=== PATIENT | male | born 1995 | race Two or more races ===

== ENCOUNTER 2019-01-25 08:15 | Outpatient (CLI) | payer OTHER ==
--- NOTE | 2019-01-25 15:41 | MRI Report ---
Reason: PAIN IN LEFT ANKLE AND JOINTS OF LEFT FOOT Procedure Date: 01/25/2019 Accession Number: [id number] / [id number] Procedure: MRI - Ankle LT W/O CPT Code: FULL RESULT: EXAM: LEFT ANKLE/HINDFOOT MRI WITHOUT CONTRAST EXAM DATE: 01/25/2019 09:05 AM. CLINICAL HISTORY: Left ankle pain. COMPARISON: None. TECHNIQUE: Multiplanar, multisequence T1-weighted and fluid-sensitive sequences of the ankle/hindfoot without contrast. Other: None. FINDINGS: Bones: No fractures. There is marrow edema within the distal fibular diaphysis that extends to the cranial margin of the imaged field of view, without a discrete fracture plane (series 7 image 27). There is also faint marrow edema within the lateral malleolus without a fracture. Marrow signal is otherwise normal. Articular Cartilage: Normal. No osteochondral lesion of the talar dome or tibial plafond. Ligaments: Mildly thickened and intermediate signal anterior talofibular ligament. The posterior talofibular and calcaneofibular ligaments are normal. Although no fluid since within the syndesmosis, the anterior inferior tibiofibular ligament is thickened and intermediate signal with irregularity of the fibers. The posterior inferior tibiofibular ligament is normal. The deep and superficial deltoid and spring ligaments are intact. Anterior Tendons: The tibialis anterior, extensor hallucis longus, and extensor digitorum longus tendons are unremarkable. Medial Tendons: The tibialis posterior, flexor digitorum longus, and flexor hallucis longus tendons are unremarkable. Lateral Tendons: The peroneus brevis and longus are unremarkable. Achilles Tendon: The Achilles tendon is unremarkable. Musculature: No edema or fatty atrophy. Other: No effusions. The contents of the sinus tarsi and tarsal tunnel are unremarkable. No plantar fasciitis. The subcutaneous tissues are unremarkable. IMPRESSION: 1. Sprain of the anterior talofibular ligament, with faint marrow edema at the tip of the lateral malleolus underlying the fibular attachment. 2. Partial tear of the anterior-inferior tibiofibular ligament. 3. Marrow edema within the distal fibular diaphysis at the cranial margin of the imaged field of view, without a fracture plane visualized. Correlate with radiographs of the tibia-fibula. [facility]IA
== END 2019-01-25 08:16 | disposition home or self-care (01) ==
LOC: DI 08:15
PROVIDERS: ATTEND Student in an Organized Health Care Education/Training Program
DX: S93.492A Sprain of other ligament of left ankle, initial encounter (principal); S93.432A Sprain of tibiofibular ligament of left ankle, initial encounter; R60.0 Localized edema

== ENCOUNTER 2020-11-13 01:32 | Emergency (ER) | payer OTHER ==
--- NOTE | 2020-11-13 02:16 | ED Physician Documentation ---
PD HPI DYSPNEA - Stated complaint Stated Complaint: SOA - Chief complaint Chief Complaint: Resp - History obtained from History obtained from: Patient - History of Present Illness Timing - onset: Enter time (20:00), Today Timing - onset during: Exertion Timing - details: Gradual onset Improved by: Rest Worsened by: Exertion Associated symptoms: Chest pain / discomfort. No: Fever, Cough Similar symptoms before: Has not had sx before Recently seen: Not recently seen - Additional information Additional information: c/o shortness of breath and "slight" (per patient) chest discomfort. Onset approximately 8 PM while working out at a gym tonight. Denies fever, denies cough. Had Moderna COVID vaccination 2 days ago. Denies myalgias Review of Systems Constitutional: denies: Fever, Chills, Myalgias, Fatigue, Sweats Cardiac: reports: Chest pain / pressure. denies: Palpitations, Pedal edema Respiratory: reports: Dyspnea. denies: Cough PD PAST MEDICAL HISTORY - Past Medical History Past Medical History: Yes GI: GERD - Past Surgical History Past Surgical History: No - Present Medications Home Medications: Ambulatory Orders Medication Instructions Recorded Confirmed Pantoprazole Sodium 40 mg PO DAILY 11/13/20 11/13/20 - Allergies Allergies/Adverse Reactions: Allergies Allergy/AdvReac Type Severity Reaction Status Date / Time No Known Drug Allergies Allergy Verified 11/13/20 01:39 - Social History Does the pt smoke?: No Smoking Status: Never smoker Does the pt drink ETOH?: Yes Does the pt have substance abuse?: No - Immunizations Immunizations are current?: Yes PD ED PE NORMAL - Vitals Vital signs reviewed: Yes - General General: Alert and oriented X 3, No acute distress, Well developed/nourished - Cardiac Cardiac: RRR, No murmur - Respiratory Respiratory: No respiratory distress, Clear bilaterally - Extremities Extremities: No edema Results - Vitals Vitals: Oxygen O2 Source Room air - Rads (name of study) chest xray Radiology: Prelim report reviewed, See rad report PD MEDICAL DECISION MAKING - ED course Complexity details: reviewed results, re-evaluated patient, considered differential, d/w patient ED course: c/o mild dyspnea, "slight" chest discomfort while working out at gym tonight. PERC negative and unremarkable CXR. Lungs CTA bilaterally on exam, 100% pulse ox on room air. Further testing not indicated at this time Departure - Departure Disposition: 01 Home, Self Care Clinical Impression: Chest pain Qualifiers: Chest pain type: unspecified Qualified Code(s): R07.9 - Chest pain, unspecified Dyspnea Qualifiers: Dyspnea type: shortness of breath Qualified Code(s): R06.02 - Shortness of breath Condition: Good Instructions: ED Chest Pain Atypical Unkn Cause, ED Dyspnea Shortness of Breath Discharge Date/Time: 11/13/20 04:36
[2020-11-13 04:37] VITALS: BP 122/80
--- NOTE | 2020-11-13 12:03 | XRAY Report ---
PROCEDURE: Chest 2 View X-Ray INDICATIONS: chest pain, dyspnea TECHNIQUE: 2 view(s) of the chest. COMPARISON: None. FINDINGS: Surgical changes and devices: None. Lungs and pleura: No pleural effusions or pneumothorax. Lungs are clear. Mediastinum: Mediastinal contours are normal. Heart size is normal. Bones and chest wall: No suspicious bony abnormalities. Soft tissues appear unremarkable. IMPRESSION: No acute pulmonary process. The above findings are concordant with preliminary report. Reviewed by: Shari Jackson MD on 11/13/2020 12:02 PM PDT Approved by: Shari Jackson MD on 11/13/2020 12:02 PM PDT Station ID: [id number]
== END 2020-11-13 04:36 | disposition home or self-care (01) ==
LOC: ED 01:32
DX: R07.9 Chest pain, unspecified (principal); R06.02 Shortness of breath
CPT/HCPCS: 99283